=== PATIENT | female | born 1995 | race Caucasian/White ===

== ENCOUNTER 2017-07-13 02:48 | Emergency (ER) | payer SELFPAY ==
[2017-07-13 03:05] VITALS: TEMP 98.1; O2SAT 95
[2017-07-13 06:04] VITALS: BP 117/88; PULSE 109; RESP 18
--- NOTE | 2017-07-13 06:19 | EDPHY ---
H & P Stated Complaint: Cold Time Seen by Provider: 07/13/17 02:49 HPI/ROS: HPI The patient presents with feeling cold and bilateral knee pain. She is brought in by ambulance. She is newly homeless, has been living at the half-way in [place] but felt unsafe there so got a ride from a [employer] to [place]. She was unable to get into the [place] half-way so was outside for several hours. She called 911. Here, she says she is feeling cold. She says her knees always hurt her from the amount of walking she has been doing. She denies any other complaints. She was previously in the foster care system in [place].. REVIEW OF SYSTEMS Constitutional: No fever, no chills. Eyes: No discharge. ENT: No sore throat. Cardiovascular: No chest pain, no palpitations. Respiratory: No cough, no shortness of breath. Gastrointestinal: No abdominal pain, no vomiting. Genitourinary: No hematuria. Musculoskeletal: No back pain. Skin: No rashes. Neurological: No headache. PMHx: Healthy Soc Hx: Homeless PHYSICAL General Appearance: Alert, no distress Eyes: Pupils equal and round no pallor or injection ENT, Mouth: Mucous membranes moist Respiratory: There are no retractions, lungs are clear to auscultation Cardiovascular: Regular rate and rhythm Gastrointestinal: Abdomen is soft and non-tender, no masses, bowel sounds normal Neurological: A&O, moves all extremities Skin: Warm and dry, no rashes Musculoskeletal: Neck is supple non tender Extremities: symmetrical, full range of motion Psychiatric: Patient is oriented X 3, there is no agitation Source: Patient Exam Limitations: No limitations - Personal History LMP (Females 10-55): Unknown Current Tetanus/Diphtheria Vaccine: Unsure Current Tetanus Diphtheria and Acellular Pertussis (TDAP): Unsure - Medical/Surgical History Hx Asthma: No Hx Chronic Respiratory Disease: No Hx Diabetes: No Hx Cardiac Disease: No Hx Renal Disease: No Hx Cirrhosis: No Hx Alcoholism: No Hx HIV/AIDS: No Hx Splenectomy or Spleen Trauma: No - Social History Smoking Status: Never smoked Constitutional: Initial Vital Signs Temperature (C) 36.7 C 07/13/17 02:57 Heart Rate 86 07/13/17 02:57 Respiratory Rate 20 07/13/17 02:57 Blood Pressure 134/87 H 07/13/17 02:57 O2 Sat (%) 95 07/13/17 02:57 O2 Delivery Mode Room Air Allergies/Adverse Reactions: guaifenesin [From Robitussin] Allergy (Verified 07/13/17 07:28) Home Medications: Medication Instructions Recorded NK [No Known Home Meds] 07/13/17 Medical Decision Making Differential Diagnosis: 21-year-old female, homeless and currently not in the half-way, presents feeling cold after being outside for several hours trying to get into the [facility]. She is also complaining of bilateral knee pain to the paramedics which she denies to me currently. Her exam is unremarkable. She says she feels tired because she has not been sleeping recently. She was allowed to sleep in the emergency department for several hours. She has used the coordinated entry program and I have advised her that she will need to follow up with them to see if she can gain access to the [facility]. She will be discharged from the emergency department. Departure - Departure Disposition: Home, Routine, Self-Care Clinical Impression: Homeless, Knee pain, bilateral Condition: Good Instructions: Knee Pain (ED) Additional Instructions: Please return to the emergency department if your worse in any way. You should go through that coordinated entry program to see if you can get a place at the [facility]. Referrals: [facility],. [Clinic] - As per Instructions
== END 2017-07-13 06:45 | disposition home or self-care (01) ==
DX: M25.561 Pain in right knee (principal); M25.562 Pain in left knee; Z59.0 Homelessness

== ENCOUNTER 2017-07-13 07:26 | Emergency (ER) | payer SELFPAY ==
[2017-07-13 07:33] VITALS: RESP 16; TEMP 97.9; O2SAT 96
--- NOTE | 2017-07-13 08:11 | EDPHY ---
H & P Time Seen by Provider: 07/13/17 08:08 HPI/ROS: Chief complaint. Suicide ideation HPI. Patient is a 21-year-old female who was seen earlier today for knee pain. She returns today with depression and tells me "I am going to ". Her plan is to for reason start . She has chronic knee pain. She has some sore hands from being out in the cold. She has previous suicide attempts by multiple methods she tells me. She used to be a cutter but recent cutting. Denies ingestions or taking too many medications. Otherwise healthy ROS Constitutional. no fever/chills, no weakness Eyes. no problems with vision ENT. no sore throat, no nasal drainage Cardiovascular. no chest pain Respiratory. no shortness of breath, no cough Abdominal. no abdominal pain, no nausea/vomiting, no diarrhea . no problems urinating MS. Chronic knee pain, cold hands Skin. no rash Lymph. no swollen glands Neuro. Depression Past Medical/Surgical History: Anemia, depression, previous suicide attempts Social History: Single, homeless, nonsmoker, no alcohol Smoking Status: Never smoked Physical Exam: General Appearance: Alert depressed flat affect tearful mild distress vital signs significant for heart rate of 112 Eyes: Pupils equal and round no pallor or injection. ENT, Mouth: Mucous membranes are moist. Respiratory: There are no retractions, lungs are clear to auscultation. Cardiovascular: Regular rate and rhythm. Gastrointestinal: Abdomen is soft and nontender, no masses, bowel sounds normal. Neurological: Awake and alert, sensory and motor exams grossly normal. Skin: Hands are slightly erythematous but good capillary refill and range of motion Musculoskeletal: Neck is supple nontender. Extremities symmetrical, full range of motion. Psychiatric: Patient is oriented X 3, there is no agitation. Depressed affect Constitutional: Initial Vital Signs Temperature (C) 36.6 C 07/13/17 07:28 Heart Rate 112 H 07/13/17 07:28 Respiratory Rate 16 07/13/17 07:28 Blood Pressure 123/90 H 07/13/17 07:28 O2 Sat (%) 96 07/13/17 07:28 O2 Delivery Mode Room Air Allergies/Adverse Reactions: guaifenesin [From Robitussin] Allergy (Verified 07/13/17 07:28) Home Medications: Medication Instructions Recorded NK [No Known Home Meds] 07/13/17 Medical Decision Making Procedures: Patient is placed on a detainer ED Course/Re-evaluation: Re-evaluation 10:45 a.m.. Patient is stable. Her labs are normal. She is cleared medically for evaluation Patient has been evaluated by mental health and felt to be appropriate for outpatient therapy and management. She remained stable in the emergency department Differential Diagnosis: I considered substance abuse, substance withdrawal, suicide and homicide ideation - Data Points Laboratory Results: Laboratory Results 07/13/17 08:00 07/13/17 08:00 07/13/17 07/13/17 07/13/17 08:00 08:00 08:00 WBC RBC Hgb Hct MCV MCH MCHC RDW Plt Count MPV Neut % (Auto) Lymph % (Auto) Independence % (Auto) Eos % (Auto) Baso % (Auto) Nucleat RBC Rel Count Absolute Neuts (auto) Absolute Lymphs (auto) Absolute Monos (auto) Absolute Eos (auto) Absolute Basos (auto) Absolute Nucleated RBC Immature Gran % Immature Gran # Sodium 142 mEq/L mEq/L (135-145) Potassium 4.4 mEq/L mEq/L (3.5-5.2) Chloride 105 mEq/L mEq/L (97-110) Carbon Dioxide 24 mEq/l mEq/l (22-31) Anion Gap 13 mEq/L mEq/L (8-16) BUN 14 mg/dL mg/dL (7-23) Creatinine 0.6 mg/dL mg/dL (0.6-1.0) Estimated GFR > 60 Glucose 86 mg/dL mg/dL (70-100) Calcium 9.8 mg/dL mg/dL (8.5-10.4) Beta HCG, Qual NEGATIVE Urine Opiates Screen NEGATIVE (NEGATIVE) Acetaminophen < 10 mcg/mL L mcg/mL (10-30) Urine Barbiturates NEGATIVE (NEGATIVE) Ur Phencyclidine Scrn NEGATIVE (NEGATIVE) Ur Amphetamine Screen NEGATIVE (NEGATIVE) U Benzodiazepines Scrn NEGATIVE (NEGATIVE) Urine Cocaine Screen NEGATIVE (NEGATIVE) U Marijuana (THC) Screen NEGATIVE (NEGATIVE) Ethyl Alcohol < 10 mg/dL mg/dL (0-10) 07/13/17 08:00 WBC 5.46 10^3/uL 10^3/uL (3.80-9.50) RBC 4.34 10^6/uL 10^6/uL (4.18-5.33) Hgb 13.0 g/dL g/dL (12.6-16.3) Hct 37.7 % L % (38.0-47.0) MCV 86.9 fL fL (81.5-99.8) MCH 30.0 pg pg (27.9-34.1) MCHC 34.5 g/dL g/dL (32.4-36.7) RDW 12.6 % % (11.5-15.2) Plt Count 328 10^3/uL 10^3/uL (150-400) MPV 8.9 fL fL (8.7-11.7) Neut % (Auto) 42.4 % % (39.3-74.2) Lymph % (Auto) 43.2 % % (15.0-45.0) Independence % (Auto) 11.0 % % (4.5-13.0) Eos % (Auto) 2.7 % % (0.6-7.6) Baso % (Auto) 0.5 % % (0.3-1.7) Nucleat RBC Rel Count 0.0 % % (0.0-0.2) Absolute Neuts (auto) 2.31 10^3/uL 10^3/uL (1.70-6.50) Absolute Lymphs (auto) 2.36 10^3/uL 10^3/uL (1.00-3.00) Absolute Monos (auto) 0.60 10^3/uL 10^3/uL (0.30-0.80) Absolute Eos (auto) 0.15 10^3/uL 10^3/uL (0.03-0.40) Absolute Basos (auto) 0.03 10^3/uL 10^3/uL (0.02-0.10) Absolute Nucleated RBC 0.00 10^3/uL 10^3/uL (0-0.01) Immature Gran % 0.2 % % (0.0-1.1) Immature Gran # 0.01 10^3/uL 10^3/uL (0.00-0.10) Sodium Potassium Chloride Carbon Dioxide Anion Gap BUN Creatinine Estimated GFR Glucose Calcium Beta HCG, Qual Urine Opiates Screen Acetaminophen Urine Barbiturates Ur Phencyclidine Scrn Ur Amphetamine Screen U Benzodiazepines Scrn Urine Cocaine Screen U Marijuana (THC) Screen Ethyl Alcohol Medications Given: Discontinued Medications Throat Lozenges (Cepacol Lozenge) 1 ea PO EDNOW ONE Stop: 07/13/17 11:56 Last Admin: 07/13/17 12:25 Dose: 1 ea Departure - Departure Disposition: Home, Routine, Self-Care Clinical Impression: Depression Qualifiers: Depression Type: unspecified Qualified Code(s): F32.9 - Major depressive disorder, single episode, unspecified Condition: Good Instructions: Depression (ED) Additional Instructions: Return for further thoughts of harming herself or others. Follow up with mental health as they have recommended. Referrals: NONE *PRIMARY CARE P,. [Primary Care Provider] - As per Instructions [facility] [Outside] - As per Instructions
[2017-07-13 08:41] LABS: PLATELET COUNT 328 10^3/uL (150-400)
[2017-07-13] MEDS ORDERED: CEPACOL LOZENGE PO ONE (11:55)
[2017-07-13 13:29] VITALS: BP 115/72; PULSE 103
== END 2017-07-13 14:15 | disposition home or self-care (01) ==
DX: F32.9 Major depressive disorder, single episode, unspecified (principal)
CPT/HCPCS: 80305; G0480

== ENCOUNTER 2017-07-16 12:33 | Emergency (ER) | payer SELFPAY ==
[2017-07-16 12:40] VITALS: RESP 16
--- NOTE | 2017-07-16 12:57 | CPEKG ---
Heart Rate: 84 RR Interval: 714 P-R Interval: 144 QRSD Interval: 92 QT Interval: 348 QTC Interval: 412 P Austin: 55 QRS Austin: 13 T Wave Austin: 45 EKG Severity - NORMAL ECG - EKG Impression: SINUS RHYTHM Electronically Signed By: Andre Hoang 16-Jul-2017 15:07:57
--- NOTE | 2017-07-16 13:22 | EDPHY ---
H & P Stated Complaint: cp Time Seen by Provider: 07/16/17 13:21 Source: Patient Exam Limitations: No limitations - Personal History Current Tetanus/Diphtheria Vaccine: Unsure - Medical/Surgical History Hx Asthma: No Hx Chronic Respiratory Disease: No Hx Diabetes: No Hx Cardiac Disease: No Hx Renal Disease: No Hx Cirrhosis: No Hx Alcoholism: No Hx HIV/AIDS: No Hx Splenectomy or Spleen Trauma: No Other PMH: anemia - Social History Smoking Status: Never smoked Constitutional: Initial Vital Signs Temperature (C) 36.9 C 07/16/17 12:40 Heart Rate 77 07/16/17 12:40 Respiratory Rate 16 07/16/17 12:40 Blood Pressure 107/78 07/16/17 12:40 O2 Sat (%) 96 07/16/17 12:40 O2 Delivery Mode Room Air Allergies/Adverse Reactions: guaifenesin [From Robitussin] Allergy (Verified 07/13/17 07:28) Home Medications: Medication Instructions Recorded NK [No Known Home Meds] 07/13/17 Medical Decision Making - Diagnostics Imaging Results: Imaging Impressions Chest X-Ray 07/16/17 13:30 Impression: Clear lungs. Imaging: I viewed and interpreted images myself ED Course/Re-evaluation: CHIEF COMPLAINT: Chest pain. HISTORY OF PRESENT ILLNESS: The patient is a 21-year-old female presenting with left sided chest pain for the past few days. The patient admits to methamphetamine use 1 week ago. She did not experience chest pain immediately after the meth use. The patient has a history of SI, she tried to overdose on caffeine pills at age 20. The patient denies SI today. She denies ingestion of other substances. REVIEW OF SYSTEMS: A 10 point review of systems was performed and is negative with the exception of the elements mentioned in the history of present illness. PHYSICAL EXAM: HR, BP, O2 Sat, RR. Temp noted General Appearance: Alert, well hydrated, appropriate, and non-toxic appearing. Head: Atraumatic without scalp tenderness or obvious injury Eyes: Pupils equal, round, reactive to light and accommodation, EOMI, no trauma , no injection. Ears: Clear bilaterally, no perforation, normal landmarks Nose: Atraumatic, no rhinorrhea, clear. Throat: There is no erythema or exudates, no lesions, normal tonsils, mucus membranes moist. Neck: Supple, 2+ carotid upstroke, nontender, no lymphadenopathy. Respiratory: No retractions, no distress, no wheezes, and no accessory muscle use. Lungs are clear to auscultation bilaterally. Cardiovascular: Regular rate and rhythm, no murmurs, rubs, or gallops. Bilateral carotid, radial, dorsalis pedis, and posterior tibial pulses intact. Good capillary refill all extremities. Gastrointestinal: Abdomen is soft, nontender, non-distended, no masses, no rebound, no guarding, no peritoneal signs. Musculoskeletal: Normal active ROM of all extremities, atraumatic. Neurological: Alert, appropriate, and interactive. The patient has normal DTRs and non-focal cranial nerves, motor, sensory, and cerebellar exam. Skin: No rashes, good turgor, no nodules on palpation. Past medical history: Polysubstance abuse. Past surgical history: Denies. Family history: Noncontributory. Social history: Methamphetamine use. DIAGNOSTICS/PROCEDURES/CRITICAL CARE TIME: Chest x-ray is normal, clear lungs. DIFFERENTIAL DIAGNOSIS: The differential diagnosis for the patient's chest pain included but was not limited to methamphetamine abuse, myocardial ischemia , pulmonary embolus, chest wall pain, pleural inflammation, and pulmonary infectious causes. MEDICAL DECISION MAKING: Patient presents with chest pain after snorting methamphetamine 1 week ago. Her pain is mild and non-radiating. She denies dyspnea, lightheadedness, or Plan for chest x-ray, Duo-Neb breathing treatment, and 10mg Decadron. The patient has a normal exam. The patient's chest pain improved after the breathing treatment and steroids. Her chest x-ray is normal. Her chest pain is likely secondary to methamphetamine use. Plan to discharge the patient home. I have discussed with the patient the dangers of using methamphetamine. The patient understands and agrees with the plan to be discharged home. - Data Points Medications Given: Discontinued Medications Albuterol/Ipratropium (Duoneb) 3 ml IH EDNOW ONE Stop: 07/16/17 13:31 Last Admin: 07/16/17 13:44 Dose: 3 ml Dexamethasone (Decadron Injection) 10 mg IVP EDNOW ONE Stop: 07/16/17 13:31 Last Admin: 07/16/17 13:44 Dose: 10 mg Departure - Departure Disposition: Home, Routine, Self-Care Clinical Impression: Pneumonitis Condition: Good Instructions: Pneumonitis (ED) Additional Instructions: You have been referred to [facility] [place], follow up as needed. [facility] [place] has walk-in appointments for the homeless at the following days/locations. No appointment is needed. Monday 8-10 am @ [facility] 11 AM-1 PM @ [facility] Monday 8-10:30 AM @ [facility] Monday 8-10 AM @ [facility] 2-4 PM @ [facility] Monday 8-10 AM @ [facility] Referrals: [facility],. [Clinic] - As per Instructions Report Scribed for: Andre Hoang Report Scribed by: Shannon Calvillo Date of Report: 07/16/17 Time of Report: 13:29
[2017-07-16] MEDS ORDERED: DEXAMETHASONE 10 MG/ML VIAL IVP ONE (13:30)
[2017-07-16] MEDS ORDERED: IPRATROPIUM/ALBUTEROL 3 ML DEYVIAL IH ONE (13:30)
[2017-07-16 14:17] VITALS: BP 118/70; PULSE 75; TEMP 96.8; O2SAT 95
== END 2017-07-16 14:17 | disposition home or self-care (01) ==
LOC: EDUNIT#
DX: J18.9 Pneumonia, unspecified organism (principal)
CPT/HCPCS: 96374; J1100